=== PATIENT | female | born 1965 ===

== ENCOUNTER 2019-06-27 08:03 | Outpatient (CLI) | payer BC ==
--- NOTE | 2019-06-27 08:28 | RAD ---
XR Foot Rt 3 View STANDARD HISTORY: Right foot pain FINDINGS: No acute fracture or dislocation is identified. There is a hallux valgus deformity of the great toe.
== END 2019-06-27 08:04 | disposition home or self-care (01) ==
LOC: RAD-FRANK 08:03
PROVIDERS: ATTEND Nurse Practitioner Family
DX: M79.671 Pain in right foot (principal); M20.11 Hallux valgus (acquired), right foot

== ENCOUNTER 2019-10-16 16:08 | Outpatient (CLI) | payer BC ==
--- NOTE | 2019-10-16 16:19 | RAD ---
EXAM: 3 views of the right foot HISTORY: Foot pain COMPARISON: 06/27/2019 FINDINGS: 3 views of the right foot shows no evidence of acute fracture or dislocation. Remodeling of the second, fourth and fifth metatarsals likely represent healing of a remote fractures of these bones. No soft tissue swelling is seen. No degenerative changes are present. IMPRESSION: No evidence of acute osseous abnormality.
== END 2019-10-16 16:09 | disposition home or self-care (01) ==
LOC: RAD-FRANK 16:08
PROVIDERS: ATTEND Nurse Practitioner Family
DX: M79.671 Pain in right foot (principal)